=== PATIENT | male | born 1985 | race Hispanic/Latino ===

== ENCOUNTER 2021-07-14 18:58 | Emergency (ER) | payer SELFPAY ==
[~2021-07-14] VITALS: Ht 157.5 cm; Wt 73.0 kg
[2021-07-14 21:36] LABS: URINE BILIRUBIN - DIPSTICK NEGATIVE (NEGATIVE); URINE BLOOD DIPSTICK LARGE (NEGATIVE); URINE GLUCOSE - DIPSTICK NEGATIVE (NEGATIVE); URINE KETONE NEGATIVE (NEGATIVE); URINE PROTEIN - DIPSTICK 100 mg/dL (NEG-TRACE); URINE SPECIFIC GRAVITY >=1.030
[2021-07-14 21:38] LABS: URINE COLOR AMBER
[2021-07-14 21:39] LABS: URINE LEUK ESTERASE MODERATE (NEGATIVE); URINE NITRITE - DIPSTICK NEGATIVE (Negative)
[2021-07-14 21:42] LABS: URINE RBC >100 RBC/hpf (0-5); URINE WBC >100 WBC/hpf (0-5)
[2021-07-14] MEDS ORDERED: BACTRIM DS1 TAB PO (22:08)
[2021-07-14 22:49] VITALS: BP 133/83
== END 2021-07-14 22:56 | disposition home or self-care (01) | DRG 728 ==
LOC: ED 18:58
PROVIDERS: Family Medicine
DX: A54.09 Other gonococcal infection of lower genitourinary tract (principal); N39.0 Urinary tract infection, site not specified